=== PATIENT | female | born 1970 | race Caucasian/White ===

== ENCOUNTER → 2018-02-09 | Outpatient (CLI) | payer MEDICAID | LOC: FIMAGING 14:30 | PROVIDERS: ATTEND Internal Medicine | DX: Z12.31 Encounter for screening mammogram for malignant neoplasm of breast (principal); Z80.3 Family history of malignant neoplasm of breast ==

== ENCOUNTER 2018-08-28 19:58 | Emergency (ER) | payer MEDICAID ==
[2018-08-28] MEDS ORDERED: KETOROLAC 30 MG/1 ML SDV IVP ONE (20:07)
[2018-08-28] MEDS ORDERED: FAMOTIDINE 20 MG/NACL 50 ML IV ONE (20:07)
--- NOTE | 2018-08-28 20:09 | EDPHY ---
H & P Time Seen by Provider: 08/28/18 20:05 HPI/ROS: HPI: This is a 48-year-old female presents with Chief Complaint: Right upper quadrant/epigastric pain Location: Right upper quadrant/epigastric Quality: Dull pain Duration: 2 days Signs and Symptoms: no fever, no nausea, no vomiting, no hematemesis, no blood in stool, no abdominal bloating, no diarrhea, no back pain, no urinary symptoms , no vaginal bleeding/discharge, no indigestion, no chest pain, no shortness of breath Timing: Intermittent episodes Severity: Moderate Context: Patient presents with 2 day history of epigastric/right upper quadrant deep dull pain that started as "twinges" that occurred several times yesterday and then worsened in severity today. Not related to food. Does not take NSAIDs. Has not drank alcohol in several days. Patient initially believed it was muscular in nature as she has increased her exercise regimen. The area is not tender to touch. Denies fever, nausea, vomiting, back pain, urinary symptoms, vaginal bleeding, vaginal discharge. Modifying Factors: None Comment: ROS: A comprehensive 10 system review of systems is otherwise negative aside from elements mentioned in the history of present illness. MEDICAL/SURGICAL/SOCIAL HISTORY: Medical history: Generally healthy. Surgical history: Denies Social history: Involved in a long-term relationship. Employed. Social alcohol use but none in the last few days. Denies drug or tobacco use. Family history noncontributory. CONSTITUTIONAL: Extremely well-appearing polite and cooperative middle-aged white female, at bedside, awake and alert, no obvious distress HEENT: Atraumatic and normocephalic, PERRL, EOMI. Nares patent; no rhinorrhea; no nasal mucosal edema. Tympanic membranes clear. Oropharynx clear, no exudate and moist pink mucosa. Airway patent. No lymphadenopathy. No meningismus. Cardiovascular: Normal S1/S2, regular rate, regular rhythm, without murmur rub or gallop. PULMONARY/CHEST: Symmetrical and nontender. Clear to auscultation bilaterally. Good air movement. No accessory muscle usage. ABDOMEN: Soft, nondistended, moderate right upper quadrant tenderness, mild epigastric tenderness, no rebound, no guarding, no peritoneal signs, no masses or organomegaly. No CVAT. Bowel sounds heard x4 quadrants. EXTREMITIES: 2/2 pulses, strength 5/5, no deformities, no clubbing, no cyanosis or edema. NEUROLOGICAL: no focal neuro deficits. GCS 15. SKIN: Warm and dry, no erythema. no rash. Good capillary refill. Source: Patient, Police Exam Limitations: No limitations Constitutional: Initial Vital Signs Temperature (C) 37.0 C 08/28/18 20:10 Heart Rate 82 08/28/18 20:10 Respiratory Rate 18 08/28/18 20:10 Blood Pressure 164/110 H 08/28/18 20:10 O2 Sat (%) 99 08/28/18 20:10 O2 Delivery Mode Room Air Allergies/Adverse Reactions: metronidazole Allergy (Verified 08/28/18 20:09) Home Medications: Medication Instructions Recorded NK [No Known Home Meds] 08/28/18 Medical Decision Making - Diagnostics Imaging Results: Imaging Impressions Abdomen Ultrasound 08/28/18 20:07 Impression: No cholelithiasis or biliary ductal dilation. Findings and recommendations discussed with Emergency Department physician, Sondra Guerrier PAC at 20:47 hour, 08/28/2018. Final report concurs with initial preliminary interpretation. ED Course/Re-evaluation: Vital signs reviewed and stable upon arrival. IV access, laboratory studies, urinalysis, right upper quadrant ultrasound ordered Patient given IV Toradol 30 mg and IV Pepcid 20 mg 2039: Laboratory studies reviewed. No signs of leukocytosis/anemia/platelet dysfunction/SHIV/elevated LFTs/electrolyte imbalance/pancreatitis/. 2047: Called by radiologist, Dr. Calvin, reports right upper quadrant ultrasound shows unremarkable gallbladder, common bile duct measures 3 mm, no pancreatitis, no hydronephrosis, + moderate bowel gas Suspect that this is abdominal gas pain. Patient reports that she has no urinary symptoms and politely declines urinalysis. Patient asking to be discharged home. Passed p.o. Trial. This patient was seen under the supervision of my secondary supervising physician. I evaluated and cared for this patient independently. Differential Diagnosis: Abdominal pain including but not limited to appendicitis, cholecystitis, gastritis and urinary tract infection. - Data Points Laboratory Results: Laboratory Results 08/28/18 20:08 08/28/18 20:08 08/28/18 08/28/18 08/28/18 20:08 20:08 20:08 WBC 5.64 10^3/uL 10^3/uL (3.80-9.50) RBC 4.68 10^6/uL 10^6/uL (4.18-5.33) Hgb 13.6 g/dL g/dL (12.6-16.3) Hct 40.8 % % (38.0-47.0) MCV 87.2 fL fL (81.5-99.8) MCH 29.1 pg pg (27.9-34.1) MCHC 33.3 g/dL g/dL (32.4-36.7) RDW 12.5 % % (11.5-15.2) Plt Count 199 10^3/uL 10^3/uL (150-400) MPV 11.1 fL fL (8.7-11.7) Neut % (Auto) 51.5 % % (39.3-74.2) Lymph % (Auto) 33.9 % % (15.0-45.0) Martin % (Auto) 9.6 % % (4.5-13.0) Eos % (Auto) 4.1 % % (0.6-7.6) Baso % (Auto) 0.7 % % (0.3-1.7) Nucleat RBC Rel Count 0.0 % % (0.0-0.2) Absolute Neuts (auto) 2.91 10^3/uL 10^3/uL (1.70-6.50) Absolute Lymphs (auto) 1.91 10^3/uL 10^3/uL (1.00-3.00) Absolute Monos (auto) 0.54 10^3/uL 10^3/uL (0.30-0.80) Absolute Eos (auto) 0.23 10^3/uL 10^3/uL (0.03-0.40) Absolute Basos (auto) 0.04 10^3/uL 10^3/uL (0.02-0.10) Absolute Nucleated RBC 0.00 10^3/uL 10^3/uL (0-0.01) Immature Gran % 0.2 % % (0.0-1.1) Immature Gran # 0.01 10^3/uL 10^3/uL (0.00-0.10) Sodium 136 mEq/L mEq/L (135-145) Potassium 3.8 mEq/L mEq/L (3.5-5.2) Chloride 102 mEq/L mEq/L (97-110) Carbon Dioxide 24 mEq/l mEq/l (22-31) Anion Gap 10 mEq/L mEq/L (6-14) BUN 14 mg/dL mg/dL (7-23) Creatinine 0.6 mg/dL mg/dL (0.6-1.0) Estimated GFR > 60 Glucose 95 mg/dL mg/dL (70-100) Calcium 9.4 mg/dL mg/dL (8.5-10.4) Total Bilirubin 0.4 mg/dL mg/dL (0.1-1.4) Conjugated Bilirubin 0.0 mg/dL mg/dL (0.0-0.5) Unconjugated Bilirubin 0.4 mg/dL mg/dL (0.0-1.1) AST 35 IU/L IU/L (14-46) ALT 44 IU/L IU/L (9-52) Alkaline Phosphatase 94 IU/L IU/L (38-126) Total Protein 7.8 g/dL g/dL (6.3-8.2) Albumin 4.6 g/dL g/dL (3.5-5.0) Lipase 101 IU/L IU/L (23-300) Beta HCG, Qual NEGATIVE Medications Given: Discontinued Medications Famotidine/Sodium Chloride (Pepcid 20 Mg (Premix)) 50 mls @ 200 mls/hr IV EDNOW ONE Stop: 08/28/18 20:21 Last Admin: 08/28/18 20:19 Dose: 50 mls Ketorolac Tromethamine (Toradol) 30 mg IVP EDNOW ONE Stop: 08/28/18 20:08 Last Admin: 08/28/18 20:19 Dose: 30 mg Departure - Departure Disposition: Home, Routine, Self-Care Clinical Impression: Abdominal gas pain Condition: Good Instructions: Gas and Bloating (ED), Abdominal Pain (ED) Additional Instructions: Consume a minimum of 8-10 glasses of water or electrolyte fluid replacement drinks that include Gatorade, Powerade, Pedialyte. Eat a bland diet for the next 48 hours and then slowly advance as tolerated. Take MiraLax daily as needed for constipation. Take [id number] Gas-X or simethicone every 4-6 hours as needed for gas pain. Referrals: Ladonna Marrero MD [Primary Care Provider] - As per Instructions
[2018-08-28 20:25] LABS: PLATELET COUNT 199 10^3/uL (150-400)
[2018-08-28 20:42] VITALS: BP 141/86
== END 2018-08-28 21:03 | disposition home or self-care (01) ==
DX: R14.0 Abdominal distension (gaseous) (principal)
CPT/HCPCS: 96374; J1885